=== PATIENT | male | born 1995 | race Caucasian/White ===

== ENCOUNTER 2023-08-28 03:40 | Emergency (ER) | payer SELFPAY ==
[2023-08-28 03:41] VITALS: BP 158/90; PULSE 89; RESP 16; TEMP 36.6; O2SAT 99; BMI 28.9
--- NOTE | 2023-08-28 03:47 | EDS_ITS ---
HPI History of Present Illness Chief Complaint: Eye Problem Informant: patient Onset/Context/Timing Location: Right Eye Onset: Yesterday Context: Gradual Onset Timing: Continuous Worsened by: Nothing Relieved by: Nothing Associated Symptoms Associated Symptoms - Eyes: Burning, Crusting, Foreign body sensation, Photophobia and Redness Visual Changes: right: Blurred vision History of injury: Uncertain and Welding injury Visual correction: None Narrative Narrative: Patient presents with right eye pain and redness that began yesterday. Patient is unsure if there was a foreign body in his eye or if he got welding flash burn. Patient admits to some burning and pain in his right eye. Patient admits to some watery drainage. Patient states it feels like there is something in his eye. Patient admits to some blurry vision out of his right eye. Patient denies any other injuries. Patient states his last tetanus was 2 years ago. [facility] Medical History no medical history no medical history Home Medications NK 08/28/23 [History Last Taken Unknown] Allergy/AdvReac Type Severity Reaction Status Date / Time No Known Allergies Allergy Verified 08/28/23 03:46 Social History Smoking Status: Current every day smoker tobacco type: cigarettes ROS ROS ED Constitutional Constitutional ED: Denies chills or fever(s) Eyes Eyes: Reports blurry vision right; Denies change in vision ENT ENT ED: Denies rhinorrhea or sore throat Cardiovascular Cardiovascular: Denies chest pain or palpitations Respiratory/Chest Respiratory/Chest: Denies cough or dyspnea Gastrointestinal Gastrointestinal: Denies nausea or vomiting Genitourinary Genitourinary ED: Denies dysuria or hematuria Musculoskeletal Musculoskeletal: Denies back pain or neck pain Integumentary Denies abscess or rash Neurologic Neurologic: Denies headache(s) or weakness Allergic/Immunologic Allergic/Immunologic ED: Denies mouth swelling or urticaria EXAM Physical Exam Const Vital Signs: 08/28/23 03:41 Temperature 97.8 F Temperature Source Oral Pulse Rate 89 Respiratory Rate 16 Blood Pressure 158/90 H Blood Pressure Mean 112 Pulse Ox 99 Oxygen Delivery Method Room Air Positive well nourished and well developed General Appearance ED: well developed and NAD HEENT atraumatic Eyes Eyes Narrative: Pupils are equal, round, and reactive to light bilaterally. Extraocular muscles are intact. Conjunctiva was injected on the right. There are no foreign bodies visualized. Anterior chamber is clear. There is no hyphema. Red reflexes equal bilaterally. Patient is unable to tolerate funduscopic examination. Neck supple and no JVD Neuro oriented x3, CN's II-XII intact bilaterally, moves all extremities and no sensory deficits noted Sensorium / Orientation: alert Motor Exam: strength 5/5 throughout MDM MDM MDM Narrative Medical decision making narrative: Tetracaine and fluorescein dye was applied to the right eye. Slit-lamp examination there is a metallic foreign body noted at the 8 o'clock position. Anterior chamber was clear. There is no hyphema. Under topical anesthesia, the foreign body was removed with an ophthalmic lj. There was a residual rust ring. This was removed until the patient could no longer tolerate. Erythromycin ophthalmic ointment was applied to the right eye. Patient was instructed to apply this to his right eye 4 times daily. Patient was referred to ophthalmology for follow-up care in 1 to 2 days. Patient understood and was agreeable with the plan. All questions were answered. Discharge Plan Triage Chief Complaint: Eye Problem ED Provider: Amador Em Dx/Rx/DC Orders Clinical Impression: Foreign body in cornea, right eye, initial encounter, Corneal rust ring of right eye Instructions: ED Corneal Foreign Body, Removed, ED RUST RING Prescriptions: No Action NK Primary Care Provider: Care Physician,No Primary Referrals: Ja Taylor MD [Med Staff - Active Staff] - 1 Day Care Physician,No Primary [Primary Care Provider] - Disposition Disposition: Home, Self Care
[2023-08-28] MEDS: Tetracaine 0.5% Ophthalmic Bottle 1 DRP OPHTHALMIC (04:09)
[2023-08-28] MEDS: Fluorescein 1 MG STRIP 1 STRIP OPHTHALMIC (04:09)
[2023-08-28] MEDS: Erythromycin Base 1 OPTH.TUBE 3.5 APPLIC RIGHT EYE (05:06)
[2023-08-28 05:08] VITALS: BP 158/90; PULSE 89; RESP 16; O2SAT 99
== END 2023-08-28 05:09 | disposition home or self-care (01) ==
PROVIDERS: Emergency Provider Emergency Medicine; Visit Provider Emergency Medicine
DX: T15.01XA Foreign body in cornea, right eye, initial encounter (principal); F17.210 Nicotine dependence, cigarettes, uncomplicated; X58.XXXA Exposure to other specified factors, initial encounter
CPT/HCPCS: 99283

== ENCOUNTER 2024-08-25 11:57 | Emergency (ER) | payer SELFPAY ==
[2024-08-25 11:58] VITALS: BP 128/86; PULSE 85; RESP 17; TEMP 36.6; O2SAT 97; BMI 23.7
--- NOTE | 2024-08-25 12:07 | EX.ED.VIS.EY ---
HPI History of Present Illness Chief Complaint: Eye Problem Detail of Chief Complaint: Foreign body sensation left eye Informant: patient Onset/Context/Timing Location: Left Eye Onset: Today Context: Sudden Onset Timing: Continuous Current Severity: Moderate Maximum Severity: Severe Worsened by: Light Relieved by: Nothing Associated Symptoms Associated Symptoms - Eyes: Drainage, Foreign body sensation, Pain, Photophobia and Redness; Negative for Burning, Crusting, Eyelid swelling, Itching or Matting History of injury: Yes and Foreign body (Was grinding. There is no history of metal pounding on metal.) Visual correction: None Narrative Narrative: Patient is a 29-year-old male. He presents because of foreign body sensation left eye. He believes it is a piece of metal stuck. He was grinding. There is no history of metal putting a metal. He complains of tearing, redness, pain and light sensitivity. No history of welding. Prior similar symptoms: Yes Recent Illness/Hospitalization: No PFSH PFSH Medical History no medical history no medical history Home Medications ?Medication ?Instructions ?Recorded ?Last Taken ?Type ciprofloxacin HCl 0.3 % eye drops 1 drp LEFT EYE Q4H #2.5 mL 08/25/24 Unknown Rx Allergy/AdvReac Type Severity Reaction Status Date / Time No Known Allergies Allergy Verified 08/25/24 12:00 Social History Smoking Status: Light Smoker (<10/day) ROS ROS ED Constitutional Constitutional ED: Denies chills, fever(s), subjective or sweats Eyes Eyes: Reports other Details: Foreign body sensation left eye ; Denies blurry vision, change in vision or diplopia ENT ENT ED: Denies ear pain, rhinorrhea or sore throat Integumentary Denies rash Neurologic Neurologic: Denies headache(s) Hematologic/Lymphatic Hematologic/Lymphatic: Denies easy bleeding or easy bruising EXAM Physical Exam Const Vital Signs: 08/25/24 11:58 Temperature 97.8 F Temperature Source Oral Pulse Rate 85 Respiratory Rate 17 Blood Pressure 128/86 H Blood Pressure Mean 100 Pulse Ox 97 Oxygen Delivery Method Room Air Positive well nourished and well developed Constitutional Narrative: Patient appears uncomfortable. General Appearance ED: well developed HEENT HEENT Narrative: Ears normal. atraumatic; Negative for tenderness Nose: external nose normal Eyes Eyes Narrative: Left eye is injected. There is a metallic foreign body noted approximately 2 mm from the limbal border at 5:00. Patient does have photophobia to direct light but not consensual light. Pupils equal round reactive. Extract muscles are intact. There is no preauricular lymphadenopathy. There is no swelling of the upper or lower eyelids. Neck no lymphadenopathy, supple and no JVD Resp normal respiratory effort Cardio regular rate and regular rhythm Neuro oriented x3 and CN's II-XII intact bilaterally Sensorium / Orientation: alert Psych Psych Narrative: Normal Skin no wounds MDM MDM MDM Narrative Medical decision making narrative: Will anesthetize the eye with tetracaine. Will then stained with fluorescein. Will evaluate under slit-lamp exam and specifically look for evident evidence of problems with the anterior chamber. SPECT this is due to the metallic corneal foreign body. Visual acuity was ordered as well. Procedures Other Procedures Procedure(s): The metallic foreign body was removed. There is a remaining rust ring. There is also 2 small metallic foreign bodies noted to the left of the main foreign body. Patient was unable to keep his eye still. Twice because of him moving I inadvertently touched the lid which caused him significant pain. Since he is unable to keep his eye still and the metallic foreign bodies have been removed we will have him follow-up with ophthalmology since there is a residual rust ring noted. Discharge Plan Triage Chief Complaint: Eye Problem ED Provider: Sinan Fernández Dx/Rx/DC Orders Clinical Impression: Foreign body in cornea, left eye, initial encounter, Rust ring of left cornea due to metallic foreign body Instructions: ED RUST RING Prescriptions: New ciprofloxacin HCl 0.3 % drops 1 drp LEFT EYE Q4H Qty: 2.5 0RF Rx Instructions: administer while awake Primary Care Provider: Care Physician,No Primary Referrals: Chun Mcgowan MD [Med Staff - Active Staff] - 1 Day Care Physician,No Primary [Primary Care Provider] - Activity Restrictions/Additional Instructions: Call Dr. Mcgowan's office to be seen tomorrow to have the rust ring removed. Let the office staff know you were seen in the emergency department. Print Language: Nepali Disposition Disposition: Home, Self Care
[2024-08-25] MEDS: Fluorescein 1 MG STRIP 1 STRIP LEFT EYE (12:23)
[2024-08-25] MEDS: Tetracaine 0.5% Ophthalmic Bottle 1 DRP LEFT EYE (12:23)
--- NOTE | 2024-08-25 12:30 | ED.RN ---
Dr. redmond bedside
[2024-08-25 12:50] VITALS: BP 128/86; PULSE 85; RESP 17; TEMP 36.6; O2SAT 97
== END 2024-08-25 12:51 | disposition home or self-care (01) ==
PROVIDERS: Emergency Provider Emergency Medicine; Visit Provider Emergency Medicine
DX: T15.02XA Foreign body in cornea, left eye, initial encounter (principal); W44.E0XA Non-magnetic metal object unspecified, entering into or through a natural orifice, initial encounter; F17.200 Nicotine dependence, unspecified, uncomplicated
CPT/HCPCS: 99283